=== PATIENT | female | born 1965 | race Caucasian/White ===

== ENCOUNTER → 2018-02-27 | Outpatient (CLI) | payer OTHER ==
--- NOTE | 2018-02-27 07:48 | XR ---
EXAMINATION TYPE: XR Hip Complete LT DATE OF EXAM: 02/27/2018 CLINICAL HISTORY: Left hip pain and numbness with no known injury TECHNIQUE: AP and frogleg views of the left hip are obtained. COMPARISON: None. FINDINGS: There is no acute fracture/dislocation evident in the left hip. The joint space in the le ft hip demonstrates very mild joint space narrowing and acetabular roof sclerosis. The overlying sof t tissue appears unremarkable. IMPRESSION: There is no acute fracture or dislocation in the left hip. Mild left femoral acetabular arthropathy.
== END | disposition home or self-care (01) ==
LOC: RADXRMAIN 07:17
PROVIDERS: ATTEND Nurse Practitioner Family
DX: M16.12 Unilateral primary osteoarthritis, left hip (principal)
CPT/HCPCS: 73502

== ENCOUNTER 2020-04-09 22:01 | Emergency (ER) | payer OTHER ==
[2020-04-09 22:08] VITALS: BP 118/78; PULSE 94; RESP 16; TEMP 98
[2020-04-09] MEDS ORDERED: diphenhydrAMINE 50 MG/ML 1 ML VIAL IM STA (22:21)
[2020-04-09] MEDS ORDERED: FAMOTIDINE 20 MG TAB PO STA (22:21)
[2020-04-09] MEDS ORDERED: methylPREDNISolone SOD SUCCI 125 MG/2 ML VIAL IM ONE (22:21)
--- NOTE | 2020-04-09 22:23 | ED ---
Allergic Reaction HPI - General Chief complaint: Allergic Reaction Stated complaint: Bee Sting Time Seen by Provider: 04/09/20 22:14 Source: patient Mode of arrival: ambulatory Limitations: no limitations - History of Present Illness Initial Comments: 54-year-old female patient presents to the emergency department today for evaluation after being stung by a bee. Patient states that she was stung in the right hand and the left butt cheek around 3:30 this afternoon. Patient states that she did take Benadryl shortly after. Patient states that this evening she started to develop hives over her abdomen, face, and back. Patient did not take any further Benadryl but presented here for further evaluation. Patient say she has a known ALLERGY to bee stings. She does have an EpiPen but did not use it. She denies any lip or tongue swelling. Denies any throat swelling. Denies any shortness of breath. States she did have some abdominal discomfort earlier after drinking an entire monster. It did resolve. Patient denies any recent rash, fever, chills, cough, nausea, vomiting, diarrhea, constipation, back pain, numbness, tingling, dizziness, weakness, hematuria, dysuria, urinary urgency, urinary frequency, headache, visual changes, or any other complaints. - Related Data Previous Rx's Medication Instructions Recorded Famotidine [Pepcid] 20 mg PO DAILY #3 tablet 04/09/20 predniSONE 50 mg PO DAILY #3 tab 04/09/20 EPINEPHrine (Auto Inject) [Epipen] 0.3 mg IM ONCE PRN #2 pen 04/10/20 Allergies Allergy/AdvReac Type Severity Reaction Status Date / Time bee venom protein (honey bee) Allergy Rash/Hives Verified 04/09/20 22:07 Review of Systems ROS Statement: Those systems with pertinent positive or pertinent negative responses have been documented in the HPI. ROS Other: All systems not noted in ROS Statement are negative. Past Medical History Past Medical History: No Reported History History of Any Multi-Drug Resistant Organisms: None Reported Past Surgical History: Tubal Ligation Past Psychological History: No Psychological Hx Reported Smoking Status: Current every day smoker Past Alcohol Use History: None Reported Past Drug Use History: None Reported General Exam Limitations: no limitations General appearance: alert, in no apparent distress, other (This is a well- developed, well-nourished adult female patient in no acute distress. Vital signs upon presentation are temperature 98.0F, pulse 94, respirations 16, blood pressure 118/78, pulse ox 97% on room air.) Eye exam: Present: normal appearance, PERRL, EOMI. Absent: scleral icterus, conjunctival injection, periorbital swelling ENT exam: Present: normal exam, normal oropharynx, mucous membranes moist Respiratory exam: Present: normal lung sounds bilaterally. Absent: respiratory distress, wheezes, rales, rhonchi, stridor Cardiovascular Exam: Present: regular rate, normal rhythm, normal heart sounds. Absent: systolic murmur, diastolic murmur, rubs, gallop, clicks GI/Abdominal exam: Present: soft, normal bowel sounds. Absent: distended, tenderness, guarding, rebound, rigid Extremities exam: Present: full ROM, normal capillary refill, other (There is generalized swelling to the right hand. Skin is otherwise pink, warm, dry. Cap refills less than 3 seconds. Radial pulses 2+ and equal bilaterally). Absent: normal inspection, tenderness, pedal edema, joint swelling, calf tenderness Neurological exam: Present: alert, oriented X3, CN II-XII intact Psychiatric exam: Present: normal affect, normal mood Skin exam: Present: warm, dry, intact, normal color, rash (There is urticarial rash noted over the trunk, back, and arms) Course Vital Signs 04/09/20 22:03 Temperature 98 F Pulse Rate 94 Respiratory 16 Rate Blood Pressure 118/78 O2 Sat by Pulse 97 Oximetry Medical Decision Making - Medical Decision Making 54-year-old female patient presents to the emergency department today for evaluation after being stung by a bee this afternoon. Patient comes in this evening because she developed hives over her trunk and arms. Physical examination did reveal urticaria over the abdomen, chest, and back. She did have generalized swelling to the right hand but good neurovascular status. She is given IM Solu-Medrol and Benadryl. She is given PEPCID. She'll be discharged with a 3 day course of prednisone and Pepcid. States instructed take Benadryl every 6 hours as needed. She is instructed to follow-up with her primary care physician for recheck in 1-2 days. Return parameters were discussed in detail. She verbalizes understanding and agrees with this plan. She states her epipen is and she is requesting a refill. Disposition Clinical Impression: Bee sting, Urticaria Disposition: HOME SELF-CARE Condition: Good Instructions (If sedation given, give patient instructions): Insect Bite or Sting (ED), General Allergic Reaction (ED) Additional Instructions: Take medications as directed. Complete medications and full. Follow-up with your primary care physician for recheck in 1-2 days. Return to the emergency department immediately for any new, worsening, or concerning symptoms. Prescriptions: EPINEPHrine (Auto Inject) [Epipen] 0.3 mg IM ONCE PRN #2 pen PRN Reason: Anaphylaxis Famotidine [Pepcid] 20 mg PO DAILY #3 tablet predniSONE 50 mg PO DAILY #3 tab Is patient prescribed a controlled substance at d/c from ED?: No Referrals: None,Stated [Primary Care Provider] - 1-2 days Time of Disposition: 22:23
== END 2020-04-09 22:43 | disposition home or self-care (01) ==
LOC: EC 22:01
DX: T63.441A Toxic effect of venom of bees, accidental (unintentional), initial encounter (principal); L50.0 Allergic urticaria; F17.200 Nicotine dependence, unspecified, uncomplicated; Z91.030 Bee allergy status
CPT/HCPCS: 99282; 96372 ×2; J1200; J2930

== ENCOUNTER → 2021-03-27 | Outpatient (CLI) | payer OTHER ==
--- NOTE | 2021-04-01 14:35 | MM ---
Reason for exam: screening (asymptomatic). Last mammogram was performed 4 years and 11 months ago. History: Patient is postmenopausal. Physical Findings: A clinical breast exam by your physician is recommended on an annual basis and results should be correlated with mammographic findings. MG Screening Mammo w CAD Bilateral CC and MLO view(s) were taken. Prior study comparison: May 05, 2016, bilateral MG screening mammo w CAD. February 10, 2015, bilateral MG screening mammo w CAD. There are scattered fibroglandular densities. No significant changes when compared with prior studies. ASSESSMENT: Negative, BI-RAD 1 RECOMMENDATION: Routine screening mammogram of both breasts in 1 year.
== END | disposition home or self-care (01) ==
LOC: RADMAMWWP 10:13
PROVIDERS: ATTEND Internal Medicine
DX: Z12.31 Encounter for screening mammogram for malignant neoplasm of breast (principal)
CPT/HCPCS: 77067

== ENCOUNTER → 2022-07-09 | Outpatient (CLI) | payer OTHER ==
--- NOTE | 2022-07-09 22:16 | MR ---
EXAMINATION TYPE: MR shoulder LT wo con DATE OF EXAM: 07/09/2022 COMPARISON: Outside left shoulder x-ray July 06, 2022 HISTORY: PAIN IN LEFT SHOULDER for 4 months with difficulty raising arm overhead TECHNIQUE: Multiplanar, multisequence imaging of the left shoulder is performed without contrast. FINDINGS: Rotator Cuff: Increased signal and partial tearing of the distal supraspinatus tendon particularly al diana the bursal surface. Infraspinatus tendon is intact. Subscapularis tendon intact with surrounding fluid. Rotator cuff muscle bulk is maintained. Acromioclavicular Joint: Moderate capsular hypertrophy. Loss underlying fat plane. Correlate for unde rlying impingement. Glenohumeral Joint: Small joint effusion. No significant spurring. Labrum: Marked increased signal superior labrum. Biceps Tendon: The long head of biceps is in normal location within bicipital groove. Bone marrow signal: No focal abnormal marrow signal is appreciated. Other: No additional significant abnormality is appreciated. IMPRESSION: Large superior labral tear. AC joint arthropathy with suggestion of underlying impingemen t. Moderate subdeltoid/subacromial bursitis. Tendinopathy and partial tearing of distal supraspinatus tendon.
== END | disposition home or self-care (01) ==
LOC: RADMRIMAIN 11:19
PROVIDERS: ATTEND Orthopaedic Surgery
DX: S43.432A Superior glenoid labrum lesion of left shoulder, initial encounter (principal); M12.812 Other specific arthropathies, not elsewhere classified, left shoulder; X58.XXXA Exposure to other specified factors, initial encounter

== ENCOUNTER 2022-07-22 08:44 | Emergency (ER) | payer OTHER ==
--- NOTE | 2022-07-22 09:15 | ED ---
General Adult HPI - General Chief complaint: Neuro Symptoms/Deficit Stated complaint: arm & facial numbness Time Seen by Provider: 07/22/22 09:05 Source: patient, family Mode of arrival: ambulatory Limitations: no limitations - History of Present Illness Initial comments: Patient is a 57-year-old female with past medical history remarkable for chronic left shoulder pain and presents emergency Department complaining of strokelike symptoms. Patient states she woke at 5:30am was feeling normal. At approximate 7 AM, she began having weakness in her left leg, as well as numbness on the left side of her lips and the length of her left arm/hand. States she waited at home before coming the emergency department for evaluation. States her symptoms cur rently have mostly improved, including the weakness in her leg. Is able to walk without difficulty, hallway. States this is a change from earlier. Also now only has numbness on the left side of her lips, as well as left thumb. The rest of the numbness in her left upper extremity has resolved. His no other acute complaints at this time. Denies chest pain, shortness breath, abdominal pain, nausea, vomiting. Denies any headaches. No history of strokes. Is not on blood thinners. No trauma. No history of intravenous surgeries. Presents for further evaluation at this time. I was notified about the patient when she was placed in a room at approximately 9:05 AM. She came in through walk in triage. - Related Data Previous Rx's Medication Instructions Recorded Famotidine [Pepcid] 20 mg PO DAILY #3 tablet 04/09/20 predniSONE 50 mg PO DAILY #3 tab 04/09/20 EPINEPHrine (Auto Inject) [Epipen] 0.3 mg IM ONCE PRN #2 pen 04/10/20 Aspirin [[place] Aspirin EC] 81 mg PO DAILY #30 tab 07/22/22 Allergies Allergy/AdvReac Type Severity Reaction Status Date / Time bee venom protein (honey bee) Allergy Rash/Hives Verified 07/22/22 08:49 Review of Systems ROS Statement: Those systems with pertinent positive or pertinent negative responses have been documented in the HPI. Review of Systems: CONST: Denies fever EYES: Denies blurry vision ENT: Denies nasal congestion C/V: Denies Chest pain RESP: Denies shortness of breath GI: Denies abdominal pain : Denies dysuria SKIN: Denies rash. MSK: Denies joint pain. NEURO: Endorses left-sided lip numbness/thumb numbness. Improved from earlier. ROS Other: All systems not noted in ROS Statement are negative. Past Medical History Past Medical History: No Reported History History of Any Multi-Drug Resistant Organisms: None Reported Past Surgical History: No Surgical Hx Reported, Tubal Ligation Past Psychological History: No Psychological Hx Reported Smoking Status: Current every day smoker Past Alcohol Use History: None Reported Past Drug Use History: None Reported General Exam - General Exam Comments Initial Comments: General: Appears in no acute distress. HEAD: Normal with no signs of head trauma. EYES: PERRLA, EOMI, conjunctiva normal, no discharge. ENT: Hearing grossly intact, normal oropharynx. RESPIRATORY: Clear breath sounds bilaterally. No wheezes, rales, or rhonchi. C/V: Regular rate and rhythm. S1 and S2 auscultated, no edema, peripheral pulses 2+ and intact throughout ABD: Abd is soft, nontender, nondistended EXT: Normal range of motion, no obvious deformity SKIN: No rashes or lesions observed on exposed skin. NEURO: Alert and oriented x 4. Cranial nerves II-XII intact. No focal sensory or strength deficits. GCS of 15. Current NIH of 1 for slight sensory deficits of the left thumb, left side of her lips.. Last known well was 7 AM.Ambulates without difficulty. Limitations: no limitations Course Vital Signs 07/22/22 07/22/22 07/22/22 08:45 09:15 09:30 Temperature 97.5 F L Pulse Rate 86 78 86 Respiratory 18 20 20 Rate Blood Pressure 145/78 128/80 133/87 O2 Sat by Pulse 98 Oximetry 07/22/22 07/22/22 07/22/22 09:45 10:00 11:00 Temperature Pulse Rate 73 76 80 Respiratory 18 20 22 Rate Blood Pressure 123/81 122/77 138/72 O2 Sat by Pulse Oximetry 07/22/22 11:49 Temperature 98.6 F Pulse Rate 73 Respiratory 18 Rate Blood Pressure 119/82 O2 Sat by Pulse 99 Oximetry Medical Decision Making - Medical Decision Making Based on the patient's presentation and physical exam, I'm concerned that the patient may be having a CVA. Last known well was 7:00. Is currently approximately 9:10 AM. Current NIH is 1. Appears patient had an NIH at home of approximately 2. She is improving. Sensory deficits have improved as well. She is feeling better. Therefore admitted the patient a code stroke and not a code alteplase that she has a low NIH of 1, as well as a low number of deficits, as well as improving symptoms. Vital signs within acceptable limits. We'll obtain CT imaging. Code stroke was paged overhead. This was within acceptable limits. Patient was in agreement this plan. Patient has subjective loss of sensation in the left lip as well as left thumb. No objective findings to suggest stroke at this time. In fluids without difficulty. EKG shows no signs of acute ischemia. I spoke with Dr. Barkley at 0918 of neuro critical care who was in agreement the plan for altered bili medical management of CT imaging was unremarkable. Agreed with making the patient account stroke, and agreed with the decision the patient is not a candidate for TPA due to her low NIH as well as mild symptoms as well as improving symptoms. Chest x-ray shows possible bronchitis the patient denies any cough. Brain CT shows no acute intracranial process. CT angiogram of the parents shows no acute process. Laboratory studies are remarkable for a mild leukocytosis of 11.9 which is likely reactive. The remainder the patient's lavatory studies are unremarkable including a normal urine, undetectable troponin. On reevaluation, vital signs remained within acceptable limits. Patient is asymptomatic at this time. She'll receive 325 mg of aspirin. NIH 0. I did offer her admission at this time for her suspected TIA. She wishes to discuss further family members. We did discuss the benefits, including a neurology evaluation, possible MRI a more urgent basis versus outpatient follow-up. She exposed understanding. After some time, patient remains asymptomatic. She would like to go home. She does not wish to stay. I believe this is reasonable. She does have decision- making capacity. NIH remained 0. She has no symptoms at this time. Symptoms on presentation were extremely mild including numbness of the left side of her lips as well as numbness of her left thumb. This is all resolved. We discussed strict follow-up with her PCP as well as a neurologist. I will provide her contact info for a neurologist. We discussed strict return precautions if any worsening symptoms. She was in agreement with this plan. She did receive 325 mg of aspirin prior to discharge. I did send her home with a prescription for daily baby aspirin. I will provide the patient with a prescription for baby aspirin. I instructed the patient to follow up with their PCP in the next 1-3 days. I provided contact information for follow up with neurology. I explained that the patient should return to the emergency department if they experience any worsening symptoms. Strict return precautions were discussed with the patient. The patient expressed understanding of these instructions. I answered all questions that the patient had. The patient was discharged home in good condition with their prescriptions and follow up information. - Lab Data Result diagrams: 07/22/22 09:16 07/22/22 09:16 Lab Results 07/22/22 07/22/22 07/22/22 Range/Units 09:16 09:16 09:16 WBC 11.9 H (3.8-10.6) k/uL RBC 4.20 (3.80-5.40) m/uL Hgb 14.2 (11.4-16.0) gm/dL Hct 40.9 (34.0-46.0) % MCV 97.5 (80.0-100.0) fL MCH 33.8 (25.0-35.0) pg MCHC 34.7 (31.0-37.0) g/dL RDW 11.9 (11.5-15.5) % Plt Count 219 (150-450) k/uL MPV 7.8 Neutrophils % 70 % Lymphocytes % 21 % Monocytes % 6 % Eosinophils % 2 % Basophils % 0 % Neutrophils # 8.3 H (1.3-7.7) k/uL Lymphocytes # 2.4 (1.0-4.8) k/uL Monocytes # 0.7 (0-1.0) k/uL Eosinophils # 0.3 (0-0.7) k/uL Basophils # 0.1 (0-0.2) k/uL PT 10.2 (9.0-12.0) sec INR 0.9 (<1.2) APTT 23.2 (22.0-30.0) sec Sodium 137 (137-145) mmol/L Potassium 4.4 (3.5-5.1) mmol/L Chloride 108 H (98-107) mmol/L Carbon Dioxide 19 L (22-30) mmol/L Anion Gap 10 mmol/L BUN 15 (7-17) mg/dL Creatinine 0.71 (0.52-1.04) mg/dL Est GFR (CKD-EPI)AfAm >90 (>60 ml/min/1.73 sqM) Est GFR (CKD-EPI)NonAf >90 (>60 ml/min/1.73 sqM) Glucose 108 H (74-99) mg/dL Calcium 9.3 (8.4-10.2) mg/dL Total Bilirubin 0.4 (0.2-1.3) mg/dL AST 28 (14-36) U/L ALT 26 (4-34) U/L Alkaline Phosphatase 60 (38-126) U/L Troponin I (0.000-0.034) ng/mL Total Protein 6.3 (6.3-8.2) g/dL Albumin 4.3 (3.5-5.0) g/dL Urine Color Urine Appearance (Clear) Urine pH (5.0-8.0) Ur Specific [place] (1.001-1.035) Urine Protein (Negative) Urine Glucose (UA) (Negative) Urine Ketones (Negative) Urine Blood (Negative) Urine Nitrite (Negative) Urine Bilirubin (Negative) Urine Urobilinogen (<2.0) mg/dL Ur Leukocyte Esterase (Negative) Urine RBC (0-5) /hpf Urine WBC (0-5) /hpf Ur Squamous Epith Cells (0-4) /hpf Hyaline Casts (0-2) /lpf 07/22/22 07/22/22 Range/Units 09:16 10:41 WBC (3.8-10.6) k/uL RBC (3.80-5.40) m/uL Hgb (11.4-16.0) gm/dL Hct (34.0-46.0) % MCV (80.0-100.0) fL MCH (25.0-35.0) pg MCHC (31.0-37.0) g/dL RDW (11.5-15.5) % Plt Count (150-450) k/uL MPV Neutrophils % % Lymphocytes % % Monocytes % % Eosinophils % % Basophils % % Neutrophils # (1.3-7.7) k/uL Lymphocytes # (1.0-4.8) k/uL Monocytes # (0-1.0) k/uL Eosinophils # (0-0.7) k/uL Basophils # (0-0.2) k/uL PT (9.0-12.0) sec INR (<1.2) APTT (22.0-30.0) sec Sodium (137-145) mmol/L Potassium (3.5-5.1) mmol/L Chloride (98-107) mmol/L Carbon Dioxide (22-30) mmol/L Anion Gap mmol/L BUN (7-17) mg/dL Creatinine (0.52-1.04) mg/dL Est GFR (CKD-EPI)AfAm (>60 ml/min/1.73 sqM) Est GFR (CKD-EPI)NonAf (>60 ml/min/1.73 sqM) Glucose (74-99) mg/dL Calcium (8.4-10.2) mg/dL Total Bilirubin (0.2-1.3) mg/dL AST (14-36) U/L ALT (4-34) U/L Alkaline Phosphatase (38-126) U/L Troponin I <0.012 (0.000-0.034) ng/mL Total Protein (6.3-8.2) g/dL Albumin (3.5-5.0) g/dL Urine Color Light Yellow Urine Appearance Clear (Clear) Urine pH 5.5 (5.0-8.0) Ur Specific [place] 1.034 (1.001-1.035) Urine Protein Negative (Negative) Urine Glucose (UA) Negative (Negative) Urine Ketones Negative (Negative) Urine Blood Trace H (Negative) Urine Nitrite Negative (Negative) Urine Bilirubin Negative (Negative) Urine Urobilinogen <2.0 (<2.0) mg/dL Ur Leukocyte Esterase Negative (Negative) Urine RBC 1 (0-5) /hpf Urine WBC 1 (0-5) /hpf Ur Squamous Epith Cells 2 (0-4) /hpf Hyaline Casts 1 (0-2) /lpf - EKG Data -: EKG Interpreted by Me EKG Comments: 12-lead Electrocardiogram Interpretation Note EKG was reviewed and interpreted by myself. 12-lead ECG performed at 0859 is interpreted by me as revealing normal sinus rhythm at a rate of 76 beats per minute. [place] is normal. [place] interval is 116 ms, QRS duration is 82 ms, QTc is 384 ms.. There were no ST or T wave abnormalities to suggest myocardial ischemia or injury. R wave progression across the precordium was satisfactory. By my interpretation this EKG is non-diagnostic for acute ischemia. Critical Care Time Critical Care Time: Yes Total Critical Care Time: 35 Critical Care Time: Upon my evaluation, this patient had a high probability of imminent or life- threatening deterioration due to stroke activation, TIA, which required my direct attention, intervention, and personal management. I have personally provided 35 minutes of critical care time exclusive of time spent on separately billable procedures. Time includes review of laboratory data, radiology results, discussion with consultants, and monitoring for potential decompensation. Interventions were performed as documented in my note. Disposition Clinical Impression: TIA (transient ischemic attack) Disposition: HOME SELF-CARE Condition: Good Instructions (If sedation given, give patient instructions): Transient Ischemic Attack (ED) Additional Instructions: Begin taking 1 baby aspirin daily. follow up with neurology. Prescriptions: Aspirin [[place] Aspirin EC] 81 mg PO DAILY #30 tab Is patient prescribed a controlled substance at d/c from ED?: No Referrals: Nabor Penn MD [Primary Care Provider] - 1-2 days Young Flaherty MD [Medical Doctor] - 1-2 days Time of Disposition: 11:20
[2022-07-22 09:31] LABS: INR 0.9 (<1.2); Partial Thromboplastin Time 23.2 sec (22.0-30.0); Prothrombin Time 10.2 sec (9.0-12.0)
--- NOTE | 2022-07-22 09:32 | CT ---
EXAMINATION TYPE: CT brain wo con for TPA CT DLP: 2180.6 mGycm, Automated exposure control for dose reduction was used. DATE OF EXAM: 07/22/2022 9:26 AM COMPARISON: None. CLINICAL INDICATION:Female, 57 years old with history of Neuro deficit, acute, stroke suspected, Left sided lip numbness, left sided weakness TECHNIQUE: Brain: Multiple axial CT images of the brain were obtained without IV contrast. Coronal and sagittal reformats reviewed. FINDINGS: Brain: Extra-axial spaces: No abnormal extra-axial fluid collections. Ventricular system: Within normal limits Cerebral parenchyma: No acute intraparenchymal hemorrhage or mass effect. The bryant-white junction is well differentiated. Cerebellum: Unremarkable. Mass effect: No evidence of midline shift. Intracranial vasculature: Atherosclerotic calcifications of the intracranial vessels. Soft tissues: Normal. Calvarium/osseous structures: No depressed skull fracture. Paranasal sinuses and mastoid air cells: Clear Visualized orbits: Orbital contents are intact. IMPRESSION: No acute intracranial process.
[2022-07-22 09:35] LABS: ALT 26 U/L (4-34); AST 28 U/L (14-36); African American GFR (CKD) >90 (>60 ml/min/1.73 sqM); Albumin 4.3 g/dL (3.5-5.0); Alkaline Phosphatase 60 U/L (38-126); Anion Gap 10 mmol/L; Blood Urea Nitrogen 15 mg/dL (7-17); Calcium 9.3 mg/dL (8.4-10.2); Carbon Dioxide 19 mmol/L (22-30); Chloride 108 mmol/L (98-107); Glucose 108 mg/dL (74-99); Non-African American GFR(CKD) >90 (>60 ml/min/1.73 sqM); Potassium 4.4 mmol/L (3.5-5.1); Sodium 137 mmol/L (137-145); Total Bilirubin 0.4 mg/dL (0.2-1.3); Total Protein 6.3 g/dL (6.3-8.2)
--- NOTE | 2022-07-22 09:52 | CT ---
EXAMINATION TYPE: CT angio head neck CT DLP: mGycm, Automated exposure control for dose reduction was used. DATE OF EXAM: 07/22/2022 9:42 AM COMPARISON: The brain 07/22/2022. CLINICAL INDICATION:Female, 57 years old with history of Neuro deficit, acute, stroke suspected; [facility], TECHNIQUE: Axially acquired helical CT angiogram of the head and neck was obtained with contrast util izing 75 cc of Isovue-370 administered intravenously. Axial images are supplemented with 3D reconstru ctions which were post-processed at an independent workstation. NASCET criteria used. FINDINGS: CTA HEAD: No evidence of acute intracranial hemorrhage, mass effect, or midline shift. The ventricles, sulci, a nd cisterns are unremarkable. The visualized portions of the internal carotid arteries, middle cerebral arteries, anterior cerebral arteries, and posterior cerebral arteries are patent. The basilar and vertebral arteries are patent. Left vertebral artery is dominant. CTA NECK: Right Carotid System: The common carotid artery and external carotid artery are patent. The carotid bifurcation demonstrate s no evidence of hemodynamically significant stenosis. The remaining portions of the internal carotid artery demonstrate normal size without significant narrowing. Left Carotid System: The common carotid artery and external carotid artery are patent. The carotid bifurcation demonstrate s no evidence of hemodynamically significant stenosis. The remaining portions of the internal carotid artery demonstrate normal size without significant narrowing. Vertebral arteries are patent without evidence hemodynamically significant stenosis. There is a three-vessel aortic arch. The origins of the great vessels are patent. No evidence of hemo dynamically significant stenosis. Bilateral subcentimeter hypodense thyroid nodules. IMPRESSION: 1. No evidence of dissection of the cervical internal carotid arteries or vertebral arteries or any e vidence of significant stenosis at the carotid bifurcations. 2. No evidence of high-grade stenosis or intracranial aneurysm.
[2022-07-22 09:53] LABS: Basophils # (A) 0.1 k/uL (0-0.2); Basophils % (A) 0 %; Eosinophils # (A) 0.3 k/uL (0-0.7); Eosinophils % (A) 2 %; HCT 40.9 % (34.0-46.0); HGB 14.2 gm/dL (11.4-16.0); Lymphocytes # (A) 2.4 k/uL (1.0-4.8); Lymphocytes % (A) 21 %; MCH 33.8 pg (25.0-35.0); MCHC 34.7 g/dL (31.0-37.0); MCV 97.5 fL (80.0-100.0); Mean Platelet Volume 7.8; Monocytes # (A) 0.7 k/uL (0-1.0); Monocytes % (A) 6 %; Neutrophils # (A) 8.3 k/uL (1.3-7.7); Neutrophils % (A) 70 %; Platelet Count 219 k/uL (150-450); RDW 11.9 % (11.5-15.5); WBC 11.9 k/uL (3.8-10.6)
--- NOTE | 2022-07-22 10:41 | XR ---
EXAMINATION TYPE: XR chest 2V DATE OF EXAM: 07/22/2022 COMPARISON: None HISTORY: 57-year-old female confusion, left arm pain, altered mental status, left facial numbness and left leg weakness. TECHNIQUE: PA and lateral views FINDINGS: The cardiomediastinal silhouette, aorta, and pulmonary vasculature are within normal limits. Mild int erstitial prominence. Mild peribronchial cuffing. No consolidation or pleural effusion. IMPRESSION: Some interstitial prominence and peribronchial cuffing. Correlate for bronchitis or asthma. Otherwise , no definite acute process.
[2022-07-22 11:06] LABS: Appearance,Urine Clear (Clear); Bilirubin,Urine Negative (Negative); Blood,Urine Trace (Negative); Color,Urine Light Yellow; Glucose,Urine (UA) Negative (Negative); Hyaline Casts,Urine 1 /lpf (0-2); Ketones,Urine Negative (Negative); Leukocyte Esterase,Urine Negative (Negative); Nitrite,Urine Negative (Negative); PH, Urine 5.5 (5.0-8.0); Protein,Urine Negative (Negative); RBC,Urine 1 /hpf (0-5); Specific Gravity,Urine 1.034 (1.001-1.035); Squamous Epithelial Cell,Urine 2 /hpf (0-4); Urobilinogen,Urine <2.0 mg/dL (<2.0); WBC,Urine 1 /hpf (0-5)
[2022-07-22] MEDS ORDERED: ASPIRIN 325 MG TAB PO STA (11:33)
[2022-07-22 11:51] VITALS: BP 119/82; PULSE 73; RESP 18; TEMP 98.6
== END 2022-07-22 11:50 | disposition home or self-care (01) ==
LOC: EC 08:44
DX: G45.9 Transient cerebral ischemic attack, unspecified (principal); F17.200 Nicotine dependence, unspecified, uncomplicated; Z91.030 Bee allergy status
CPT/HCPCS: 36415; 93005; 80053; 84484; 85025; 85610; 85730; 81001; 71046; 70496; 70450; 70498; 99285; Q9967

== ENCOUNTER 2022-09-23 10:34 | Day surgery (SDC) | payer OTHER ==
--- NOTE | 2022-09-22 19:33 | HP ---
HISTORY AND PHYSICAL DATE OF SURGERY: 09/23/2022. HISTORY OF PRESENT ILLNESS: Nimco Jordan is a 57-year-old patient, seen with progressive left shoulder pain. We discussed options for treatment. The patient elected to proceed with left shoulder arthroscopy. Consent regarding the procedure was obtained. PAST MEDICAL HISTORY: Noncontributory. PAST SURGICAL HISTORY: Noncontributory. DAILY MEDICATIONS: 1. Hydrocodone. 2. Ibuprofen. ALLERGIES: None. SOCIAL HISTORY: The patient denies tobacco use. PHYSICAL EVALUATION OF THE LEFT SHOULDER: Flexion is 120 degrees, abduction is 90 degrees, external rotation is 30 degrees with pain and weakness. Tenderness along the anterolateral acromion and rotator cuff insertion site. Impingement is positive at 90 degrees. Cross-body adduction sign is positive. Drop-arm sign is positive. Distal neurovascular exam is intact. IMAGING STUDIES: Radiographs of the left shoulder revealed a type 2 acromion along with acromioclavicular joint osteoarthritis. MRI of the left shoulder revealed impingement with rotator cuff tear, acromioclavicular joint osteoarthritis, and labral tear. IMPRESSION: 1. Left shoulder impingement with rotator cuff tear. 2. Left shoulder acromioclavicular joint osteoarthritis. 3. Left shoulder labral tear. PLAN: Left shoulder arthroscopy, subacromial decompression, possible arthroscopic rotator cuff repair, possible Talya procedure and debridement. MMODL / IJN: [id number] /
[2022-09-23] MEDS ORDERED: LACTATED RINGERS 1,000 ML IV SCH (10:48)
[2022-09-23] MEDS ORDERED: HYDROmorphone 0.5 MG/0.5 ML SYRINGE IVP PRN (10:48)
[2022-09-23] MEDS ORDERED: LIDOCAINE 1% (10MG/ML) FOR IV START INTRADERMA PRN (10:48)
[2022-09-23] MEDS ORDERED: ONDANSETRON 4 MG/2 ML VIAL IVP ONE (10:48)
[2022-09-23] MEDS ORDERED: DEXAMETHASONE SOD PHOSPHATE 4 MG/ML 1 ML VIAL IV ONE (10:48)
[2022-09-23 11:19] LABS: Glucose,Whole Blood 106 mg/dL (70-110)
[2022-09-23] MEDS ORDERED: MIDAZOLAM 2 MG/2 ML VIAL IVP ONE (11:35)
[2022-09-23 11:52] VITALS: RESP 16
[2022-09-23] MEDS ORDERED: MIDAZOLAM 2 MG/2 ML VIAL ONE (12:41)
[2022-09-23] MEDS ORDERED: LIDOCAINE 4% LTA KIT (4 ML) TOPICAL ONE (12:41)
[2022-09-23] MEDS ORDERED: ROPIVACAINE 5 MG/ML 30 ML VIAL ONE (12:41)
[2022-09-23] MEDS ORDERED: LIDOCAINE 2% INJ 20 MG/ML (2 ML VIAL) ONE (12:41)
[2022-09-23] MEDS ORDERED: PROPOFOL 10 MG/ML 20 ML VIAL IV ONE (12:41)
[2022-09-23] MEDS ORDERED: SUCCINYLCHOLINE CHLORIDE 200 MG/10 ML VIAL IV ONE (12:41)
[2022-09-23] MEDS ORDERED: fentaNYL (PF) 50 MCG/ML 2 ML AMP ONE (12:41)
[2022-09-23] MEDS ORDERED: DEXAMETHASONE SOD PHOSPHATE 4 MG/ML 1 ML VIAL ONE (12:41)
--- NOTE | 2022-09-23 13:56 | P.OP ---
Date of Procedure: 09/23/22 Preoperative Diagnosis: Left shoulder impingement Postoperative Diagnosis: 1. Left shoulder rotator cuff tear 2. Left shoulder impingement Procedure(s) Performed: 1. Left shoulder arthroscopic rotator cuff repair 2. Left shoulder arthroscopic subacromial decompression Implants: 14.75 Arthrex anchor Anesthesia: GETA, regional (Interscalene block) Surgeon: Leonel Beal Edger Automatic #1: Kevin Foss Estimated Blood Loss (ml): 7 Pathology: none sent Condition: stable Disposition: PACU Indications for Procedure: 57-year-old patient seen with progressive left shoulder pain. After treatment options were discussed, she elected to proceed with arthroscopy. Operative Findings: See description of procedure Description of Procedure: Patient underwent an interscalene block by department of anesthesia. The patient was then taken to the operative suite. The patient underwent a general anesthetic by the department of anesthesia. The patient was placed into a lateral position and secured. There was appropriate padding of the bony prominence. Left shoulder was then prepped and draped in normal sterile orthopedic fashion. We placed the extremity in 10 pounds of longitudinal traction. A posterior incision was now made for a posterior working portal site. The trocar and cannula were inserted into the glenohumeral joint. Arthroscopy was initiated. Spinal needle was now inserted anteriorly, to ascertain the anterior working portal site. An incision was now made in that area, a trocar was inserted followed by a probe. There was some superficial fraying of the anterior labrum. There were grade 1 chondral moist changes of the anterior aspect of the glenoid. The biceps was stable. I debrided out that superficial fraying of the anterior labrum. We again evaluated labrum and it was stable. Instruments were now removed from glenohumeral joint. Utilizing the posterior working portal site, the trocar and cannula were inserted into the subacromial space. Arthroscopy initiated. I made an incision 2 fingerbreadths lateral to the acromion. I introduced my trocar followed by my ArthroCare ablator. I now began ablating thick subacromial bursal tissue, which exposed the undersurface of the anterior acromion. There was diminished subacromial space. There was a very prominent anterior acromion. There was also an os acrominalie present anteriorly. There was a fairly small fragment obvious and stable. I excised that. I performed a decompression as well. The acromioclavicular joint was noted to be stable without significant osteoarthritis. We now had an adequate subacromial space present. I turned my attention to the rotator cuff tendon. There was a perforation along the mid supraspinatus tendon. I debrided the margins gained down to stable tendon tissue. The defect measured 1.5 cm it was freely mobile over the footprint. I abraded the footprint with a motorized bur. With the assistance of Nabor MCKINLEY past 3 everted mattress sutures through good bites of rotator cuff tendon. I punched the hole in the footprint area for insertion of an anchor. All 6 limbs of suture were passed through the eyelet of a 4.75 Arthrex swivel lock anchor. I placed the eyelet into her prepunched hole. I held it in position while Nabor MCKINLEY tension all 6 limbs of suture and deployed the anchor with good fixation noted. All residual suture limbs were now clipped. We had good compression of the tendon along the entire footprint. Instruments now removed from the portal sites. All portal sites were approximated with nylon suture. Sterile dressings were applied followed by a shoulder sling. Kevin MCKINLEY assisted in this case. The patient was awakened, transferred to a bed, and taken to recovery in stable condition.
[2022-09-23 14:01] VITALS: TEMP 97
[2022-09-23 14:51] VITALS: BP 113/74; PULSE 82
--- NOTE | 2022-09-23 21:47 | P.ANPRN ---
Procedure Note - Anesthesia - Nerve Block Performed Left Interscalene Single Time Out Performed: Yes Date of Procedure: 09/23/22 Procedure Start Time: 11:34 Procedure Stop Time: 11:39 Location of Patient: PreOp Indication: Acute Post-Operative Pain, Requested by Surgeon Sedation Type: Sedate with meaningful contact maintained Preparation: Sterile Prep Position: Supine Needle Types: Pajunk Needle Gauge: 21 Ultrasound used to visualize needle placement: Yes Ultrasound used to observe medication spread: Yes Blood Aspirated: No Pain Paresthesia on Injection Noted: No Resistance on Injection: Normal Image Stored and Saved: Yes Events: Uneventful and Well Tolerated (ropi .5% 20cc plus dexamethasone 4mg)
== END 2022-09-23 15:33 | disposition home or self-care (01) ==
LOC: OR 10:34
PROVIDERS: ATTEND Orthopaedic Surgery
DX: M75.102 Unspecified rotator cuff tear or rupture of left shoulder, not specified as traumatic (principal); M19.012 Primary osteoarthritis, left shoulder; M75.42 Impingement syndrome of left shoulder; S43.432A Superior glenoid labrum lesion of left shoulder, initial encounter; G89.18 Other acute postprocedural pain; F17.200 Nicotine dependence, unspecified, uncomplicated; Z86.73 Personal history of transient ischemic attack (TIA), and cerebral infarction without residual deficits; Z79.82 Long term (current) use of aspirin; Z79.1 Long term (current) use of non-steroidal anti-inflammatories (NSAID); Z79.811 Long term (current) use of aromatase inhibitors; Z98.51 Tubal ligation status; Z98.890 Other specified postprocedural states
CPT/HCPCS: 64415; 76942; 29827; 29826; C1894; C1713; J2250; J0330; J1100; J2405; J0690; J3010; J2795; J2704; J2001